=== PATIENT | female | born 1945 | race Caucasian/White ===

== ENCOUNTER 2017-04-14 15:07 | Emergency (ER) | payer BC, MEDICARE ==
[2017-04-14 17:46] LABS: Hematocrit 39 % (35-47); Hemoglobin 13.3 g/dl (12.0-16.0); Mean Corpuscular HGB Conc 34 g/dl (31-36); Mean Corpuscular Hemoglobin 30 pg (27-31); Mean Corpuscular Volume 89 fL (80-97); Mean Platelet Volume 8 um3 (7.4-10.4); Red Cell Distribution Width 13 % (10.5-15); White Blood Count 8.8 10^3/ul (3.5-10.8)
[2017-04-14] MEDS ORDERED: Ondansetron INJ* 2 MG/ML VIAL IV ONE (17:54)
[2017-04-14] MEDS ORDERED: Nitroglycerin TAB 0.4 MG* 0.4 MG TAB SL ONE (17:54)
[2017-04-14] MEDS ORDERED: NS 0.9% 1000 ML* 1,000 ML IV SCH (18:00)
[2017-04-14 18:03] LABS: ALT 15 U/L (7-52); AST 22 U/L (13-39); Albumin 4.6 g/dL (3.2-5.2); Alkaline Phosphatase 75 U/L (34-104); Anion Gap 8 mmol/L (2-11); BUN/Creatinine Ratio 15.5 (8-20); Blood Urea Nitrogen 11 mg/dL (6-24); CO2 Carbon Dioxide 28 mmol/L (22-32); Calcium 9.8 mg/dL (8.6-10.3); Chloride 103 mmol/L (101-111); EGFR African American 104.4 (>60); EGFR Non-African American 81.2 (>60); Glucose 122 mg/dL (70-100); Potassium 3.4 mmol/L (3.5-5.0); Sodium 139 mmol/L (133-145); Total Protein 7.6 g/dL (6.4-8.9); Troponin I 0.01 ng/mL (<0.04)
[2017-04-14 18:22] LABS: C Reactive Protein < 1.00 mg/L (< 5.00); Lipase 17 U/L (11.0-82.0)
--- NOTE | 2017-04-14 18:27 | RAD ---
Indication: Chest pain. Single frontal view of the chest performed at 1816 hours was reviewed. No prior study is available for comparison. No mediastinal shift is noted. Heart is of normal size and configuration. Lung zamarripa appear clear. IMPRESSION: NO ACTIVE CARDIOPULMONARY DISEASE IS NOTED.
--- NOTE | 2017-04-14 21:03 | ED ---
Raúl Ellis Natalie, scribed for Jose C Javed MD on 04/14/17 at 1754 . Hypertension - HPI Summary HPI Summary: The pt is a 71 y/o F presenting to the ED c/o HTN (189/87) and chest pressure across sternum sudden onset at 13:00 today. Pt states she felt like crap. She felt normal until 13:00 so she took her blood pressure. The pain is rated 5/10 in severity. The pain is intermittent but lasted an hour and a half, and is still present in the ED. The pain is aggravated by nothing and is alleviated by rest. 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 Pt additionally c/o nausea, neck stiffness, weakness, and diaphoresis. Pt denies CP, SOB, ear pain, and abd pain. Pt has hx of HTN. Pt is at the end of taking Amoxicillin for sinus infection. She does not have hx of blood clot or diabetes. She has never had a stress test. - History of Current Complaint Chief Complaint: EDGeneral Stated Complaint: HIGH BLOOD PRESSURE Time Seen by Provider: 04/14/17 17:33 Hx Obtained From: Patient Onset/Duration: Started Hours Ago - sudden at 13:00, Still Present Timing: Intermittent, Lasting Hours Aggravating Factor(s): Nothing Alleviating Factor(s): Rest Associated Signs & Symptoms: Other: - POSITIVE: chest pressure, HTN, nausea, neck stiffness, weakness, diaphoresis; NEGATIVE: CP, SOB, ear pain, abd pain - Allergies/Home Medications Allergies/Adverse Reactions: Allergies Allergy/AdvReac Type Severity Reaction Status Date / Time No Known Allergies Allergy Verified 04/14/17 15:43 PMH/Surg Hx/FS Hx/Imm Hx Previously Healthy: No Endocrine/Hematology History: Denies: Hx Diabetes Cardiovascular History: Reports: Hx Hypertension Opthamlomology History: Denies: Hx Legally Blind EENT History: Denies: Hx Deafness Infectious Disease History: No Infectious Disease History: Denies: Traveled Outside the [place] in Last 30 Days - Family History Known Family History: Negative: Cardiac Disease, Diabetes - Social History Alcohol Use: None Substance Use Type: Reports: None Smoking Status (MU): Never Smoked Tobacco Review of Systems Positive: Skin Diaphoresis Negative: Ear Ache Negative: Chest Pain Negative: Shortness Of Breath Positive: Nausea. Negative: Abdominal Pain Positive: Other - neck stiffness Positive: Weakness All Other Systems Reviewed And Are Negative: Yes Physical Exam Triage Information Reviewed: Yes Vital Signs On Initial Exam: Initial Vitals Temp Pulse Resp BP Pulse Ox 98.2 F 97 17 174/76 98 04/14/17 15:40 04/14/17 15:40 04/14/17 15:40 04/14/17 15:40 04/14/17 15:40 Vital Signs Reviewed: Yes Appearance: Positive: Well-Appearing, No Pain Distress Skin: Positive: Warm, Skin Color Reflects Adequate Perfusion, Dry Head/Face: Positive: Normal Head/Face Inspection Eyes: Positive: EOMI, ROSALIA ENT: Positive: Normal ENT inspection Neck: Positive: Supple, Nontender Respiratory/Lung Sounds: Positive: Clear to Auscultation, Breath Sounds Present Cardiovascular: Positive: RRR Abdomen Description: Positive: Nontender, Soft Bowel Sounds: Positive: Present Musculoskeletal: Positive: Normal, Strength/ROM Intact Neurological: Positive: Normal, Sensory/Motor Intact, Alert, Oriented to Person Place, Time Psychiatric: Positive: Affect/Mood Appropriate - [place] Coma Scale Coma Scale Total: 15 Diagnostics - Vital Signs Vital Signs Temp Pulse Resp BP Pulse Ox 04/14/17 15:40 98.2 F 97 17 174/76 98 - Laboratory Lab Results: Lab Results 04/14/17 Range/Units 17:21 WBC 8.8 (3.5-10.8) 10^3/ul RBC 4.40 (4.0-5.4) 10^6/ul Hgb 13.3 (12.0-16.0) g/dl Hct 39 (35-47) % MCV 89 (80-97) fL MCH 30 (27-31) pg MCHC 34 (31-36) g/dl RDW 13 (10.5-15) % Plt Count 243 (150-450) 10^3/ul MPV 8 (7.4-10.4) um3 Neut % (Auto) 85.4 H (38-83) % Lymph % (Auto) 9.6 L (25-47) % [place] % (Auto) 4.7 (1-9) % Eos % (Auto) 0.1 (0-6) % Baso % (Auto) 0.2 (0-2) % Absolute Neuts (auto) 7.5 (1.5-7.7) 10^3/ul Absolute Lymphs (auto) 0.8 L (1.0-4.8) 10^3/ul Absolute Monos (auto) 0.4 (0-0.8) 10^3/ul Absolute Eos (auto) 0 (0-0.6) 10^3/ul Absolute Basos (auto) 0 (0-0.2) 10^3/ul Absolute Nucleated RBC 0 10^3/ul Nucleated RBC % 0 Result Diagrams: 04/14/17 17:21 04/14/17 17:21 Lab Statement: Any lab studies that have been ordered have been reviewed, and results considered in the medical decision making process. - Radiology CXR Xray Interpretation: No Acute Changes Radiology Interpretation Completed By: Radiologist - No active cardiopulmonary disease is noted. ED physician has reviewed this report. - EKG 15:54 Cardiac Rate: NL EKG Rhythm: Sinus Rhythm - 79 BPM EKG Interpretation: Nml ST. No ectopy. Hypertension Course/Dx - Course Course Of Treatment: BP noted and advised to follow up with PCP. Medications reviewed. DISCUSSED RESULTS WITH PATIENT AND HER FRIEND. OFFERED ADMISSION FOR THE CHEST PAIN. PATIENT DECLINED, AGREED TO RECHECK TROPONIN WHICH WAS DONE 6 & 1/2 HOURS AFTER ONSET OF SX. F/U PMD; RETURN IF WORSE. - Diagnoses Provider Diagnoses: Chest pain, Hypertension Discharge - Discharge Plan Condition: Stable Disposition: HOME Patient Education Materials: Chest Pain (ED), Hypertension (ED) Referrals: Sandhya Draper MD [Primary Care Provider] - Additional Instructions: FOLLOW UP WITH YOUR DOCTOR. RETURN TO THE EMERGENCY DEPARTMENT FOR ANY WORSENING OF YOUR CONDITION; CHEST PAIN, SHORTNESS OF BREATH, YOU FEEL ILL OR QUESTIONS OR CONCERNS. The documentation as recorded by the Raúl morgan Natalie accurately reflects the service I personally performed and the decisions made by me, Jose C Javed MD.
== END 2017-04-14 21:05 | disposition home or self-care (01) ==
LOC: ED 15:07
DX: I10 Essential (primary) hypertension (principal); R07.9 Chest pain, unspecified
CPT/HCPCS: 36415; 71010; 80053; 83690; 84484; 85025; 85379; 85610; 86140; 87502; 93005; 96361; 96374; 99283; A9270-GY; J2405

== ENCOUNTER 2017-10-31 09:41 | Emergency (ER) | payer MEDICARE ==
[2017-10-31 09:49] VITALS: BP 155/66
--- NOTE | 2017-10-31 10:05 | UC ---
Complaint Female HPI - HPI Summary HPI Summary: Patient to the urgent care today with 34 days of urinary tract symptoms. Pain burning urgency frequency. Last UTI was over 2 years ago with no nausea vomiting no fevers chills no back pain - History Of Current Complaint Chief Complaint: UCGU Stated Complaint: URINARY COMPLAINT Time Seen by Provider: 10/31/17 10:03 Hx Obtained From: Patient ?: No Onset/Duration: Sudden Onset, Lasting Days - 3-4, Still Present Timing: Constant Pain Intensity: 7 Pain Scale Used: 0-10 Numeric Character: Burning Aggravating Factor(s): Urination Alleviating Factor(s): Nothing Associated Signs And Symptoms: Positive: Negative - Allergies/Home Medications Allergies/Adverse Reactions: Allergies Allergy/AdvReac Type Severity Reaction Status Date / Time No Known Allergies Allergy Verified 10/31/17 09:49 Home Medications: Home Medications Aspirin 81 mg CHEW TAB* 81 mg PO DAILY 10/31/17 [History Confirmed 10/31/17] Lisinopril 40 mg PO DAILY 10/31/17 [History Confirmed 10/31/17] hydroCHLOROthiazide [Hydrochlorothiazide] 12.5 mg PO DAILY 10/31/17 [History Confirmed 10/31/17] PMH/Surg Hx/FS Hx/Imm Hx Previously Healthy: No - Surgical History Surgical History: Yes Surgery Procedure, Year, and Place: t/a,tubal ligation - Family History Known Family History: Negative: Cardiac Disease, Diabetes - Social History Occupation: Retired Lives: With Family Alcohol Use: None Substance Use Type: None Smoking Status (MU): Never Smoked Tobacco Review of Systems Constitutional: Negative Skin: Negative Eyes: Negative ENT: Negative Respiratory: Negative Cardiovascular: Negative Gastrointestinal: Negative Genitourinary: Dysuria, Frequency, Urgency Motor: Negative Neurovascular: Negative Musculoskeletal: Negative Neurological: Negative Psychological: Negative Is Patient Immunocompromised?: No All Other Systems Reviewed And Are Negative: Yes Physical Exam Triage Information Reviewed: Yes Appearance: Well-Appearing, No Pain Distress, Well-Nourished Vital Signs: Initial Vital Signs Temp 98.5 F 10/31/17 09:47 Pulse 73 10/31/17 09:47 Resp 16 10/31/17 09:47 BP 155/66 10/31/17 09:47 Pulse Ox 100 10/31/17 09:47 Vital Signs Reviewed: Yes Eye Exam: Normal Eyes: Positive: Conjunctiva Clear ENT Exam: Normal ENT: Positive: Normal ENT inspection, Hearing grossly normal. Negative: Nasal congestion, Trismus, Muffled voice, Hoarse voice Dental Exam: Normal Neck exam: Normal Neck: Positive: Supple, Nontender, No Lymphadenopathy Respiratory Exam: Normal Respiratory: Positive: Chest non-tender, Lungs clear, Normal breath sounds, No respiratory distress, No accessory muscle use Cardiovascular Exam: Normal Cardiovascular: Positive: RRR, No Murmur, Pulses Normal, Brisk Capillary Refill Abdominal Exam: Normal Abdomen Description: Positive: No Organomegaly, Soft, Other: - suprapubic pressure Bowel Sounds: Positive: Present Musculoskeletal Exam: Normal Musculoskeletal: Positive: Strength Intact, ROM Intact, No Edema Neurological Exam: Normal Neurological: Positive: Alert, Muscle Tone Normal Psychological Exam: Normal Skin Exam: Normal Diagnostics - Laboratory Diagnostic Studies Completed/Ordered: ua-positive leukoesterace, blood Complaint Female Dx - Course Course Of Treatment: macrobid, increase fluids, tylenol ibuprofen culture urine follow with pcp - Differential Dx/Diagnosis Provider Diagnoses: UTI Discharge - Sign-Out/Discharge Documenting (check all that apply): Patient Departure - Discharge Plan Condition: Stable Disposition: HOME Prescriptions: Nitrofurantoin Monohyd/M-Cryst [Macrobid 100 mg Capsule] 100 mg PO BID #10 cap Patient Education Materials: Urinary Tract Infection in Women (ED), Hypertension (ED) Referrals: Sandhya Draper MD [Primary Care Provider] - 2 Weeks - Billing Disposition and Condition Condition: STABLE Disposition: Home
== END 2017-10-31 10:19 | disposition home or self-care (01) ==
LOC: UCEAST 09:41
DX: N39.0 Urinary tract infection, site not specified (principal); Z79.82 Long term (current) use of aspirin
CPT/HCPCS: 81003; 87077; 87086; 87186; 99212; G0463

== ENCOUNTER 2017-12-13 14:48 | Emergency (ER) | payer MEDICARE ==
[2017-12-13 14:55] VITALS: BP 141/65
--- NOTE | 2017-12-13 15:30 | UC ---
Complaint Female HPI - HPI Summary HPI Summary: This patient is a 72 year old F presenting to [facility] with a chief complaint of dysuria for the last week. The patient rates the pain 0/10 in severity. Patient reports increased urgency and increased frequency. Patient denies back pain, fever, n/v, and chills. 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 Onset/Duration: Lasting Weeks - 1, Still Present Timing: Constant Severity Initially: Mild Severity Currently: Mild Pain Intensity: 0 Pain Scale Used: 0-10 Numeric Character: Burning Associated Signs And Symptoms: Negative: Fever, Back Pain, Nausea - Allergies/Home Medications Allergies/Adverse Reactions: Allergies Allergy/AdvReac Type Severity Reaction Status Date / Time No Known Allergies Allergy Verified 12/13/17 14:56 Home Medications: Home Medications Vitamin B Complex CAP* [B Complex CAP*] 1 cap PO DAILY 12/13/17 [History Confirmed 12/13/17] Vitamin E CAP* 200 unit PO DAILY 12/13/17 [History Confirmed 12/13/17] PMH/Surg Hx/FS Hx/Imm Hx Cardiovascular History: Hypertension Other History Of: Negative For: HIV - Surgical History Surgical History: Yes Surgery Procedure, Year, and Place: t/a,tubal ligation - Family History Known Family History: Negative: Cardiac Disease, Diabetes - Social History Alcohol Use: None Substance Use Type: None Smoking Status (MU): Never Smoked Tobacco Review of Systems Constitutional: Negative - fever Genitourinary: Dysuria, Frequency, Urgency Musculoskeletal: Negative - back pain All Other Systems Reviewed And Are Negative: Yes Physical Exam Triage Information Reviewed: Yes Appearance: Well-Appearing, No Pain Distress Vital Signs: Initial Vital Signs Temp 98.1 F 12/13/17 14:52 Pulse 68 12/13/17 14:52 Resp 16 12/13/17 14:52 BP 141/65 12/13/17 14:52 Pulse Ox 99 12/13/17 14:52 Vital Signs Reviewed: Yes ENT Exam: Normal ENT: Positive: Normal ENT inspection, Pharynx normal, TMs normal Neck: Positive: Supple, Nontender Respiratory: Positive: Lungs clear, Normal breath sounds Cardiovascular: Positive: RRR, No Murmur Abdomen Description: Positive: Nontender Musculoskeletal: Positive: Strength Intact, ROM Intact Neurological: Positive: Alert Psychological: Positive: Normal Response To Family, Age Appropriate Behavior Skin Exam: Normal Complaint Female Dx - Course Course Of Treatment: 72 yr old with UTI.. Rx keflex - Differential Dx/Diagnosis Provider Diagnoses: uti Discharge - Sign-Out/Discharge Documenting (check all that apply): Patient Departure All imaging exams completed and their final reports reviewed: No Studies - Discharge Plan Condition: Good Disposition: HOME Prescriptions: Cephalexin CAP* [Keflex CAP*] 500 mg PO TID #15 cap Patient Education Materials: Urinary Tract Infection in Women (ED) Referrals: Sandhya Draper MD [Primary Care Provider] - 1 Week - Billing Disposition and Condition Condition: GOOD Disposition: Home - Attestation Statements Document Initiated by Scribe: Yes Documenting Scribe: Mario Bettencourt Provider For Whom Scribe is Documenting (Include Credential): Lee Damico MD Scribe Attestation: Mario Ellis scribed for Lee Damico MD on 12/13/17 at 1541. Scribe Documentation Reviewed: Yes Provider Attestation: The documentation as recorded by the Mario morgan accurately reflects the service I personally performed and the decisions made by , Lee Damico MD
== END 2017-12-13 15:49 | disposition home or self-care (01) ==
LOC: UCEAST 14:48
DX: N39.0 Urinary tract infection, site not specified (principal); I10 Essential (primary) hypertension
CPT/HCPCS: 81003; 87077; 87086; 87186; 99212; G0463